=== PATIENT | female | born 1955 | race African-American/Black ===

== ENCOUNTER 2017-06-25 13:31 | Day surgery (SDC) | payer MEDICARE, OTHER ==
[~2017-06-25] VITALS: Ht 180.3 cm; Wt 65.0 kg
[~2017-06-25 13:31] MED LIST: BALANCED SALT IRRIG SOLN 15ML ONE; BUPIVACAINE HCL/PF 0.75% (7.5MG/ML) 10ML ONE; CIPROFLOXACIN 0.3% OPHTH SOLN 2.5ML ONE; LIDOCAINE HCL 2%/EPINEPHRINE 1:100,000 20 ML VIAL INFIL ONE; NEO/POLYMYX B SULF/DEXAMETH OPHTH OINT 3.5GM ONE; PILOCARPINE HCL 2% OPHTH DROPS 15ML ONE; PREDNISOLONE ACETATE 1% OPHTH DROPS 1ML ONE; TETRACAINE 0.5% OPHTH DROPS 4ML ONE
[2017-06-25] MEDS ORDERED: BUPR100T5 PO (14:14)
[2017-06-25] MEDS ORDERED: FLUT12AE7 IH (14:14)
[2017-06-25] MEDS ORDERED: ASPI-1159 PO (14:14)
[2017-06-25] MEDS ORDERED: LOSA25TA3 PO (14:14)
[2017-06-25] MEDS ORDERED: ATOR10TA PO (14:14)
[2017-06-25 16:07] VITALS: BP 138/85
[2017-06-25 16:14] LABS: BASOPHILS % 0.5 % (0.0-2.0); EOSINOPHILS % 0.5 % (0.0-5.0); HEMATOCRIT. 42.6 % (36.0-48.0); LYMPHOCYTES % 61.2 % (20.0-50.0); MEAN CORPUSCULAR HEMOGLOBIN 28.8 pg (28.0-32.0); MEAN CORPUSCULAR VOLUME 87.5 fL (81.0-99.0); MEAN PLATELET VOLUME 10.2 fl (7.4-10.4); MONOCYTES % 6.9 % (2.0-8.0); NEUTROPHILS % 30.9 % (40.0-76.0); PLATELET 195 x1000/uL (130-400); RED BLOOD CELL COUNT 4.87 mill/uL (4.2-5.4); RED CELL DISTRIBUTION WIDTH 15.1 % (11.6-14.6)
[2017-06-25 16:19] LABS: CHLORIDE 104 mEq/L (98-107)
[2017-06-25] MEDS ORDERED: PROPOFOL 200MG/20ML VIAL IV ONE (17:15)
[2017-06-25] MEDS ORDERED: LIDOCAINE HCL/PF 1% 10 MG/ML 5ML VIAL ONE (17:15)
[2017-06-25] MEDS ORDERED: HYALURONATE SODIUM 14 MG/ML 0.85ML SYRINGE IO ONE (17:17)
[2017-06-25] MEDS ORDERED: HYDROMORPHONE HCL/PF 2MG/ML CPJ IV PRN (17:30)
[2017-06-25] MEDS ORDERED: LABETALOL 5MG/ML SYR 20 MG/4 ML SYRINGE IV PRN (17:30)
[2017-06-25] MEDS ORDERED: ONDANSETRON HCL 4MG/2ML VIAL IV PRN (17:30)
[2017-06-25] MEDS ORDERED: MEPERIDINE HCL/PF 25MG/ML CPJ IV PRN (17:30)
== END 2017-06-25 19:40 | disposition home or self-care (01) ==
LOC: ER 15:37 → OR 17:30 → ER 19:40 → OR 19:40
PROVIDERS: ATTEND Ophthalmology
DX: T81.32XA Disruption of internal operation (surgical) wound, not elsewhere classified, initial encounter (principal); I10 Essential (primary) hypertension; J44.9 Chronic obstructive pulmonary disease, unspecified; Z79.82 Long term (current) use of aspirin; Z79.899 Other long term (current) drug therapy; Z98.890 Other specified postprocedural states; Z86.73 Personal history of transient ischemic attack (TIA), and cerebral infarction without residual deficits
CPT/HCPCS: 36415; 66250; 80048; 85025; 93005; 99285; J3490; J2704